=== PATIENT | male | born 1990 | race Two or more races ===

== ENCOUNTER 2022-11-22 06:08 | Emergency (ER) | payer BC, OTHER ==
[~2022-11-22] VITALS: Ht 185.4 cm; Wt 119.1 kg
[2022-11-22 07:24] VITALS: BP 136/96
[2022-11-22] MEDS ORDERED: IBUP800T27 PO (08:51)
[2022-11-22] MEDS ORDERED: METH750T22 PO (08:51)
== END 2022-11-22 08:56 | disposition home or self-care (01) ==
LOC: ER 06:08
DX: S39.012A Strain of muscle, fascia and tendon of lower back, initial encounter (principal); Z88.6 Allergy status to analgesic agent; V43.52XA Car driver injured in collision with other type car in traffic accident, initial encounter; Y93.89 Activity, other specified; Y92.89 Other specified places as the place of occurrence of the external cause; Y99.8 Other external cause status
CPT/HCPCS: 72100

== ENCOUNTER 2023-07-31 11:46 | Emergency (ER) | payer BC, OTHER ==
[~2023-07-31] VITALS: Ht 185.4 cm; Wt 111.9 kg
[~2023-07-31 11:46] MED LIST: IBUP-1456 PO; METH-1182 PO
[2023-07-31 12:29] VITALS: BP 136/90; PULSE 85; RESP 19; TEMP 97.7; O2SAT 97
[2023-07-31] MEDS ORDERED: KETOROLAC TROMETH 30 MG/ML 1ML VIAL IM ONE (13:00)
[2023-07-31] MEDS ORDERED: cefTRIAXone SOD 1,000 MG VL IM ONE (13:00)
[2023-07-31 14:07] LABS: Rapid Influenza A Negative (Negative); Rapid Influenza B Negative (Negative)
[2023-07-31 14:08] LABS: COVID19 ANTIGEN SOFIA FIA NEGATIVE (NEGATIVE)
[2023-07-31] MEDS ORDERED: NABU-72 PO (14:30)
[2023-07-31] MEDS ORDERED: AUG875T PO (14:30)
[2023-07-31] MEDS ORDERED: LIDO2SOL26 MT (14:30)
== END 2023-07-31 14:34 | disposition home or self-care (01) ==
LOC: ER 11:46
DX: J03.90 Acute tonsillitis, unspecified (principal); Z20.822 Contact with and (suspected) exposure to COVID-19; Z79.899 Other long term (current) drug therapy
CPT/HCPCS: 36415; 87426; 87804; 96372; 99284; J0696; J1885

== ENCOUNTER 2025-06-06 19:59 | Emergency (ER) | payer BC, OTHER ==
[~2025-06-06] VITALS: Ht 185.4 cm; Wt 119.3 kg
[~2025-06-06 19:59] MED LIST changes: +AUG875T PO; +LIDO2SOL26 MT; +NABU-72 PO
[2025-06-06 21:12] LABS: Hematocrit 46.6 % (41.0-53.0); Hemoglobin 16.0 g/dL (13.5-17.5); Mean Corpuscular Hemoglobin 30.5 pg (28.0-32.0); Mean Corpuscular Volume 88.6 fL (80.0-100.0); Nucleated Red Blood Cells % 0.0 %
[2025-06-06 21:27] LABS: Albumin 4.6 g/dL (3.2-4.8); Alkaline Phosphatase 59 U/L (46-116); Anion Gap 9 (5-15); BUN/Creatinine Ratio 13.2 (10.0-20.0); Blood Urea Nitrogen 14 mg/dL (9-23); Calcium 9.5 mg/dL (8.7-10.4); Carbon Dioxide 23 mmol/L (20-31); Chloride 107 mmol/L (98-107); Lipase 42 U/L (12-53); Potassium 4.1 mmol/L (3.5-5.1); Sodium 139 mmol/L (136-145); Total Protein 7.3 g/dL (5.7-8.2)
[2025-06-06 21:39] LABS: Alanine Aminotransferase 46 U/L (7-40); Bilirubin, Total 0.3 mg/dL (0.2-1.0); Glucose 118 mg/dL (74-106)
--- NOTE | 2025-06-06 21:42 | ED.PDOC ---
History of Present Illness HPI Comments 35 y/o obese M presents with c/c of RUQ abdominal pain. Patient reports on sudden, unprovoked, and atraumatic onset of pain, that, initially, started in his right-mid back area 2x hours ago. He states on pain radiating from his back to his abdomen via wrapping around his right side. Denies any nausea, vomiting, diarrhea, constipation, burning with urination, or further associated symptoms. Chief Complaint: Abdominal Pain Time Seen by MD: 20:40 Primary Care Provider: GROSS Reviewed Notes: Nurses Notes, Medications, Allergies Allergies: Coded Allergies: NO KNOWN ALLERGIES (Unverified , 11/22/22) Home Meds Active Scripts Famotidine (PEPCID TABLET) 20 Mg Tb, 1 TAB PO BID, #180 TAB 3 Refills Prov:AGUILA WAYNE MD 06/06/25 Lidocaine HCl (Mouth-Throat) (Lidocaine HCl Viscous) 2 % Grace, 2 % MT Q4HPRN PRN for 5 Days, #100 ML Prov:STEPHANIE MARINA 07/31/23 Nabumetone (Nabumetone) 500 Mg Tab, 1 TAB PO BID PRN, #20 TAB Prov:STEPHANIE MARINA 07/31/23 Amoxicillin & Pot Clavulanate (AUGMENTIN TABLET) 875 Mg Tb, 875 MG PO BID for 10 Days, #20 TAB Prov:STEPHANIE MARINA 07/31/23 Methocarbamol (Methocarbamol) 750 Mg Tab, 750 MG PO QHSP PRN, #20 TAB Prov:ARGENTINA LEDBETTER 11/22/22 Ibuprofen (Ibuprofen) 800 Mg Tab, 1 TAB PO TID, #30 TAB Prov:ARGENTINA LEDBETTER 11/22/22 Information Source: Patient Mode of Arrival: Ambulatory Severity: Moderate Timing: Hours Duration: Since onset Prehospital treatment: None Past Medical History PAST MEDICAL HISTORY: Denies Surgical History: Denies all surgeries Family History Family History: Reviewed,noncontributory to illness Social History Smoker: Non-Smoker Alcohol: Denies ETOH Use Drugs: Denies Drug Use Lives In: Home All Other Systems: Reviewed and Negative (As per HPI) Physical Exam General Appearance: No Apparent Distress, Obese HEENT: Normal ENT Inspection, Pharynx Normal, TMs Normal Neck: Full Range of Motion, Non-Tender, Normal, Normal Inspection Respiratory: Chest Non-Tender, Lungs Clear, No Accessory Muscle Use, No Respiratory Distress, Normal Breath Sounds Cardiovascular: No Edema, No JVD, No Murmur, No Gallop, Normal Peripheral Pulses, Regular Rate/Rhythm Breast Exam: Deferred Gastrointestinal: No Organomegaly, No Pulsatile Mass, Normal Bowel Sounds, RUQ (Tenderness ), Soft, Tenderness (RUQ) Genitalia: Deferred Pelvic: Deferred Rectal: Deferred Extremities: No calf tenderness, Normal capillary refill, Normal inspection, Normal range of motion, Non-tender, No pedal edema Musculoskeletal : Apperance: Normal Neurologic: Alert, flight hostess II-XII nml as Tested, No Motor Deficits, Normal Affect, Normal Mood, No Sensory Deficits Cerebellar Function: Normal Reflexes: Normal Skin: Dry, Normal Color, Warm Lymphatic: No Adenopathy Was a procedure done? Was a procedure done?: No Differential Dx Considerations may include: Gastritis, gastroenteritis, GERD, cholelithiasis, cholecystitis, nephrolithiasis, pyelonephritis, uremia, cystitis, musculoskeletal pain, viral, spoiled food, among others X-Ray, Labs, Meds, VS Vital Signs Date Time Temp Pulse Resp B/P (MAP) Pulse Ox O2 Delivery O2 Flow Rate FiO2 06/07/25 00:30 97.6 52 16 119/77 (91) 98 97.6 06/07/25 00:30 Room Air* 0 21 06/06/25 20:01 97.7 80 20 122/78 97 97.7 Lab Test 06/06/25 21:01 06/06/25 20:30 Range/Units White Blood Count 9.2 4.4-10.8 10^3/uL Red Blood Count 5.27 4.5-5.90 10^6/uL Hemoglobin 16.0 13.5-17.5 g/dL Hematocrit 46.6 41.0-53.0 % Mean Corpuscular Volume 88.6 80.0-100.0 fL Mean Corpuscular Hemoglobin 30.5 28.0-32.0 pg Mean Corpuscular Hemoglobin Concent 34.4 32.0-36.0 g/dL Red Cell Distribution Width 12.4 11.8-14.3 % Platelet Count 280 140-450 10^3/uL Mean Platelet Volume 8.8 6.9-10.8 fL Neutrophils (%) (Auto) 62.2 37.0-80.0 % Lymphocytes (%) (Auto) 29.2 10.0-50.0 % Monocytes (%) (Auto) 5.4 0.0-12.0 % Eosinophils (%) (Auto) 2.5 0.0-7.0 % Basophils (%) (Auto) 0.7 0.0-2.0 % Neutrophils # (Auto) 5.7 1.6-8.6 10 ^3/uL Lymphocytes # (Auto) 2.7 0.4-5.4 10 ^3/uL Monocytes # (Auto) 0.5 0-1.3 10 ^3/uL Eosinophils # (Auto) 0.2 0-0.8 10 ^3/uL Basophils # (Auto) 0.1 0-0.2 10 ^3/uL Nucleated Red Blood Cells 0.0 % Sodium Level 139 136-145 mmol/L Potassium Level 4.1 3.5-5.1 mmol/L Chloride Level 107 98-107 mmol/L Carbon Dioxide Level 23 20-31 mmol/L Anion Gap 9 5-15 Blood Urea Nitrogen 14 9-23 mg/dL Creatinine 1.06 0.700-1.30 mg/dL Glomerular Filtration Rate Calc 94 >90 mL/min BUN/Creatinine Ratio 13.2 10.0-20.0 Serum Glucose 118 H 74-106 mg/dL Calcium Level 9.5 8.7-10.4 mg/dL Total Bilirubin 0.3 0.2-1.0 mg/dL Aspartate Amino Transferase (AST) 26 13-40 U/L Alanine Aminotransferase (ALT) 46 H 7-40 U/L Alkaline Phosphatase 59 46-116 U/L Total Protein 7.3 5.7-8.2 g/dL Albumin 4.6 3.2-4.8 g/dL Lipase 42 12-53 U/L Urine Color Yellow Yellow Urine Clarity Clear Clear Urine pH 5.5 5.0-9.0 Urine Specific [place] 1.033 1.001-1.035 Urine Protein Trace H Negative Urine Ketones Trace Negative Urine Blood Negative Negative /uL Urine Nitrite Negative Negative Urine Bilirubin Negative Negative Urine Urobilinogen 2 H Negative mg/dL Urine Leukocyte Esterase Negative Negative /uL Urine RBC <1 0 - 3 /hpf Urine Microscopic WBC < 1 0-3 /HPF Urine Squamous Epithelial Cells Few <5 /hpf Urine Calcium Oxalate Crystals Few None Seen Urine Bacteria None seen None Seen /hpf Urine Mucus Few None Seen Urine Glucose Normal Normal mg/dL Current Medications Medications (Trade) Dose Ordered Sig/Santiago Route Start Time Stop Time Status Last Admin Ondansetron HCl (Zofran Po) 8 mg ONCE ONCE PO 06/06/25 20:45 06/06/25 20:46 DC 06/07/25 00:27 Acetaminophen/ Hydrocodone Bitart ([place]ruff 10/325MG Tab) 1 tab ONCE ONCE PO 06/06/25 20:45 06/06/25 20:46 DC 06/07/25 00:28 Dicyclomine HCl (Bentyl Injection) 20 mg ONCE ONCE IM 06/06/25 20:45 06/06/25 20:46 DC 06/07/25 00:27 Time of 1ST Reevaluation: 21:10 Reevaluation 1ST: Unchanged Patient Education/Counseling: Diagnosis, Treatment, Need For Follow Up Family Education/Counseling: No Family Present SEPSIS Sepsis Screen Date sepsis recognized/suspect: Jun 06, 2025 Time Sepsis recognized/suspect: 2003 Recent Procedure: No On Antibiotic Therapy: No Respiratory Rate >20: No Heart Rate >90: No Temp<36 C (96.8 F) or >38.3 C: No SBP <90 or MAP <65 mmHG: No New Acute Mental Status Change: No Is the patient on CPAP, BIPAP,: No Physician Orders Gallbladder (06/06/25 20:44) Ct Ab Pel Wo Con-No Oral Or Iv (06/06/25 22:26) Vital Signs Date Time Temp Pulse Resp B/P (MAP) Pulse Ox O2 Delivery O2 Flow Rate FiO2 06/07/25 00:30 97.6 52 16 119/77 (91) 98 97.6 06/07/25 00:30 Room Air* 0 21 06/06/25 20:01 97.7 80 20 122/78 97 97.7 Laboratory Tests Test 06/06/25 21:01 White Blood Count 9.2 10^3/uL (4.4-10.8) Medications Medications Dose Ordered Sig/Santiago Route Start Time Stop Time Status Last Admin Dose Admin Acetaminophen/ Hydrocodone Bitart 1 tab ONCE ONCE PO 06/06/25 20:45 06/06/25 20:46 DC 06/07/25 00:28 Dicyclomine HCl 20 mg ONCE ONCE IM 06/06/25 20:45 06/06/25 20:46 DC 06/07/25 00:27 Ondansetron HCl 8 mg ONCE ONCE PO 06/06/25 20:45 06/06/25 20:46 DC 06/07/25 00:27 Departure 1 Departure Time of Disposition: 23:00 Impression: Primary Impression: Abdominal pain Disposition: HOME / SELF CARE / HOMELESS Condition: Stable e-Prescriptions Famotidine (PEPCID TABLET) 20 Mg Tb 1 TAB PO BID, #180 TAB 3 Refills Prov: AGUILA WAYNE MD 06/06/25 Discharged With: Self Critical Care Note Critical Care Time?: No Stability Stability form required: No Heart Score Heart Score: Heart Score Response (Comments) Value History N/A 0 EKG N/A 0 Age N/A 0 Risk Factors N/A 0 Troponin N/A 0 Total 0 I personally scribed for AGIULA WAYNE MD ([email or web address]) on 06/06/25 at 21:42. Electronically submitted by Man Wen [email or web address]). AGUILA WAYNE MD Jun 06, 2025 21:42
--- NOTE | 2025-06-06 21:52 | DVH ---
Procedure: US GALLBLADDER Study Date and Requested Time: 06/06/2025 09:07 PM History: RUQ pain Comparison: None Technique: Multiple high resolution li-scale images obtained of the right upper quadrant of the abd omen with color Doppler for evaluation of blood flow and vascularity as indicated. Findings: Liver measures 19 cm in length, with increased echogenicity and normal contours. No evidence of focal hepatic lesions, intrahepatic or extrahepatic ductal dilatation. Common bile duct measures 0.4 cm in diameter. Gallbladder is contracted with no evidence of abnormal wall thickening, gallstones, biliary sludge, o r pericholecystic fluid. Negative sonographic Christy's sign. Pancreas is obscured by bowel gas Right kidney measures 11 cm in length, with normal contours, echotexture, and cortical thickness. No evidence of hydronephrosis, calculi, cystic or solid renal lesions. Partially visualized inferior vena cava unremarkable. Impression: Hepatomegaly with hepatic steatosis. Gallbladder is contracted with no ultrasound evidence of cholelithiasis or acute cholecystitis. Pancreas is obscured by bowel gas.
[2025-06-06 21:56] LABS: Urine Protein, UAD TRACE (Negative)
--- NOTE | 2025-06-06 23:05 | DVH ---
Exam: CT CT AB PEL WO CON-NO ORAL OR IV History: right flank pain Comparison Study: None Technique: Multidetector spiral CT of the abdomen was performed from lung bases to pubic symphysis. I maging was performed without IV contrast. Axial, coronal and sagittal multiplanar reformats were obta ined from the axial data set by the technologist. Radiation Dose : 1. Abdomen/Pelvis: CTDIvol 17.53 mGy, DLP 1113.86 mGy*cm. Findings: Evaluation of solid organs is limited due to lack of intravenous contrast use. Lung Bases: No acute or significant lung base finding. Normal heart size. No pleural or pericardial effusion. Liver: The liver is normal in size. No focal lesions. Gallbladder and Biliary Tree: Unremarkable Spleen: Unremarkable Pancreas: The pancreas is grossly normal in appearance. Adrenal Glands: Unremarkable Kidneys: Kidneys are grossly normal without calculi or hydronephrosis. Bladder: Grossly unremarkable for degree of distention. Bowel: The stomach is grossly normal in appearance. Small bowel and colon are normal in caliber and d istribution. Normal appendix is visualized in the right lower quadrant without findings of appendicit is. Fairly large volume of stool throughout the colon. Ascites: Absent Lymphadenopathy: No mesenteric, retroperitoneal or periportal lymphadenopathy. Abdominal Wall and Mesentery: Unremarkable. Vasculature: The visualized abdominal aorta is normal in size and caliber. Evaluation of abdominal a nd pelvic vessels is limited due to lack of intravenous contrast. Pelvic Organs: Unremarkable Musculoskeletal: No aggressive focal bony lesions, acute fractures or dislocation. IMPRESSION: No acute abdominal or pelvic findings. Radiation optimization: All CT scans at this facility use at least one of these dose optimization ashlee hniques: automated exposure control mA and/or kV adjustment per patient size (includes targeted exam s where dose is matched to clinical indication) or iterative reconstruction.
[2025-06-06] MEDS ORDERED: FAMO20TA10 PO (23:51)
[2025-06-07] MEDS: ONDANSETRON ODT 4 MG TAB PO ONE (00:27)
[2025-06-07] MEDS: DICYCLOMINE HCL (10MG/ML) 2 ML AMPULE IM ONE (00:27)
[2025-06-07] MEDS: HYDROcodone-ACET 10/325MG TAB PO ONE (00:28)
[2025-06-07 00:30] VITALS: BP 119/77; PULSE 52; RESP 16; TEMP 97.6; O2SAT 98
== END 2025-06-07 01:30 | disposition home or self-care (01) ==
LOC: ER 19:59
DX: R10.11 Right upper quadrant pain (principal); E66.9 Obesity, unspecified; Z68.34 Body mass index [BMI] 34.0-34.9, adult; Z79.1 Long term (current) use of non-steroidal anti-inflammatories (NSAID); Z79.899 Other long term (current) drug therapy
CPT/HCPCS: 36415; 74176; 76705; 80053; 81001; 83690; 85025; 96372; 99285; J0500; Q0162